=== PATIENT | male | born 1990 | race Caucasian/White ===

== ENCOUNTER 2020-09-30 03:59 | Observation (INO) ==
[2020-09-30] MEDS ORDERED: Aspirin 81 MG TAB.CHEW PO ONE (04:11)
[2020-09-30] MEDS ORDERED: Ondansetron 4 MG/2 ML VIAL IVP ONE (04:12)
[2020-09-30 04:22] LABS: Basophils % 0.1 %; Eosinophils # 0.3 K/mcL (0.0-0.6); Eosinophils % 1.3 %; Hematocrit 46.6 % (37.5-50.1); Hemoglobin 15.6 g/dL (12.9-16.9); Immature Granulocytes % 0.3 % (0-4); Lymphocytes % 9.9 %; Mean Corpuscular HGB Conc 33.5 g/dL (31.6-35.5); Mean Corpuscular Hemoglobin 28.3 pg (28.0-33.3); Mean Corpuscular Volume 84.6 fL (83.0-100.0); Monocytes # 1.3 K/mcL (0.0-1.3); Monocytes % 6.2 %; Neutrophils # 16.7 K/mcL (1.6-8.9); Platelet Count 251 K/mcL (140-400); Red Blood Count 5.51 M/mcL (4.19-5.50); Red Cell Distribution Width 12.7 % (11.5-14.5); Segmented Neutrophils % 82.2 %; White Blood Count 20.3 K/mcL (4.3-11.1)
[2020-09-30 04:44] LABS: Alanine Aminotransferase 28 Units/L (7-52); Albumin 4.7 g/dL (3.5-5.7); Albumin/Globulin Ratio 1.6 (1.1-2.2); Alkaline Phosphatase 55 Units/L (34-104); Aspartate Amino Transferase 19 Units/L (13-39); BUN/Creatinine Ratio 16 (6-26); Bilirubin,Direct 0.1 mg/dL (0.0-0.2); Bilirubin,Indirect 0.6 mg/dL (0.0-1.0); Bilirubin,Total 0.7 mg/dL (0.3-1.0); Blood Urea Nitrogen 15 mg/dL (6-20); Calcium 9.7 mg/dL (8.6-10.3); Carbon Dioxide 23 mEq/L (23-29); Chloride 104 mEq/L (98-107); Globulin 2.9 g/dL (2.4-3.5); Glucose 95 mg/dL (70-105); Lipase 21 Units/L (11-82); Osmolality,Calculated 287 (280-300); Potassium 3.6 mEq/L (3.5-5.1); Sodium 138 mEq/L (136-145); Total Protein 7.6 g/dL (6.4-8.9); eGFR For African Americans > 60 (> 60); eGFR For Non-African Americans > 60 (> 60)
[2020-09-30 04:45] LABS: Troponin I < 0.03 ng/mL (< 0.04)
[2020-09-30] MEDS ORDERED: *HR* LORazepam 2 MG/ML VIAL IVP ONE (04:47)
[2020-09-30] MEDS ORDERED: Isovue-370 500 ML BOTTLE IVP ONE (05:21)
[2020-09-30] MEDS ORDERED: 0.9 % Sodium Chloride 1,000 ML IVC ONE (05:45)
[2020-09-30 06:07] LABS: Bilirubin,Urine Negative (Negative); Blood,Urine Negative (Negative); Clarity,Urine Clear (Clear); Color,Urine Light-Yellow (Yellow); Glucose,Urine (UA) Normal (Normal); Ketones,Urine Negative (Negative); Leukocyte Esterase,Urine Negative (Negative); Nitrite,Urine Negative (Negative); PH,Urine 5.5 pH Units (5.0-8.0); Protein,Urine Negative (Neg-Trace); Specific Gravity,Urine 1.026 (1.010-1.025); Urobilinogen,Urine Normal (Normal)
[2020-09-30] MEDS ORDERED: 0.9 % Sodium Chloride 1,000 ML IVC SCH (07:00)
[2020-09-30] MEDS ORDERED: Ondansetron 4 MG/2 ML VIAL IVP PRN ×2 (07:19→12:42)
[2020-09-30] MEDS ORDERED: Clindamycin 900 MG/50 ML 900 MG/50 ML IV.SOLN IVPB ONE (07:23)
[2020-09-30] MEDS ORDERED: Bupivacaine 0.5%-Epi 1:200,000 50 ML VIAL ONE (07:26)
[2020-09-30] MEDS ORDERED: Dexamethasone 4 MG/ML VIAL ONE (07:35)
[2020-09-30] MEDS ORDERED: Lidocaine -MPF 2% 2 ML VIAL ONE ×2 (07:35→07:36)
[2020-09-30] MEDS ORDERED: Neostigmine Methylsulfate 3 MG/3 ML SYRINGE ONE (07:36)
[2020-09-30] MEDS ORDERED: *HR* Succinylcholine 200 MG/10 ML VIAL IVP ONE (07:36)
[2020-09-30] MEDS ORDERED: *HR* Propofol 200 MG/20 ML VIAL IVP ONE (07:36)
[2020-09-30] MEDS ORDERED: *HR* Rocuronium Bromide 50 MG/5 ML VIAL ONE (07:36)
[2020-09-30] MEDS ORDERED: *HR* FentaNYL (PF) 100 MCG/2 ML VIAL ONE (07:36)
[2020-09-30] MEDS ORDERED: *HR* Midazolam HCl 2 MG/2 ML VIAL ONE (07:36)
[2020-09-30] MEDS ORDERED: Lidocaine HCL 4 ML Topical Solution (Laryng-O-Jet Kit Sterile Pak) TP ONE (07:36)
[2020-09-30] MEDS ORDERED: *HR* FentaNYL (PF) 100 MCG/2 ML VIAL IVP PRN (07:59)
[2020-09-30] MEDS ORDERED: *HR* Labetalol 20 MG/4 ML SYRINGE IVP PRN (08:00)
[2020-09-30] MEDS ORDERED: Acetaminophen IV 1,000 MG/100 ML INFUS..BTL IVPB PRN (08:00)
[2020-09-30] MEDS ORDERED: Naloxone 0.4 MG/ML INJ IVP PRN (08:01)
[2020-09-30] MEDS ORDERED: Albuterol 2.5 MG/3 ML NEBULIZER IH PRN (08:01)
[2020-09-30] MEDS ORDERED: flumazeniL 0.5 MG/5 ML VIAL IVP PRN (08:01)
[2020-09-30] MEDS ORDERED: *HR* Labetalol 20 MG/4 ML SYRINGE IVP ONE (08:56)
[2020-09-30] MEDS ORDERED: Pantoprazole 40 MG VIAL IVP SCH (09:00)
[2020-09-30] MEDS: *HR* HYDROmorphone PF 0.5 MG/0.5 ML SYRINGE IVP PRN ×3 (10:40→10:55)
[2020-09-30] MEDS ORDERED: carvediloL 6.25 MG TABLET PO SCH (12:42)
[2020-09-30] MEDS ORDERED: *HR* OxyCODONE/APAP 5/325 TABLET PO PRN (12:42)
[2020-09-30] MEDS ORDERED: Loratadine 10 MG TABLET PO SCH (12:42)
[2020-09-30] MEDS: lisinopriL 10 MG TABLET PO SCH ×3 (13:07→13:09)
[2020-09-30] MEDS: Ketorolac 15 MG/ML VIAL IVP SCH ×2 (13:21→18:24)
[2020-09-30 15:33] VITALS: BP 101/62
[2020-10-01] MEDS ORDERED: Pantoprazole 40 MG VIAL IVP SCH (09:00)
== END 2020-09-30 19:15 | disposition home or self-care (01) ==
LOC: 3BNU 03:59 → EMEROOARM 03:59 → 3BNU 08:03
PROVIDERS: ADMIT Surgery; ATTEND Surgery

== ENCOUNTER 2020-10-01 01:42 | Observation (INO) ==
[2020-10-01] MEDS ORDERED: 0.9 % Sodium Chloride 1,000 ML IVC ONE ×3 (01:50→10:26)
[2020-10-01] MEDS ORDERED: Isovue-370 500 ML BOTTLE IVP ONE ×2 (02:14→02:22)
[2020-10-01] MEDS ORDERED: Ondansetron 4 MG/2 ML VIAL IVP ONE (02:17)
[2020-10-01] MEDS ORDERED: *HR* LORazepam 2 MG/ML VIAL IVP ONE (02:17)
[2020-10-01] MEDS ORDERED: *HR* FentaNYL (PF) 100 MCG/2 ML VIAL IVP ONE ×2 (02:17→05:23)
[2020-10-01 03:16] LABS: Hemoglobin 15.5 g/dL (12.9-16.9); INR 1.2; Immature Granulocytes % 0.4 % (0-4); Lymphocytes # 1.5 K/mcL (0.6-4.6); Lymphocytes % 7.3 %; Mean Corpuscular HGB Conc 33.7 g/dL (31.6-35.5); Mean Corpuscular Hemoglobin 28.9 pg (28.0-33.3); Mean Corpuscular Volume 85.8 fL (83.0-100.0); Mean Platelet Volume 11.1 fL (9.4-12.4); Monocytes # 1.2 K/mcL (0.0-1.3); Neutrophils # 17.8 K/mcL (1.6-8.9); Platelet Count 293 K/mcL (140-400); Prothrombin Time 13.8 Seconds (9.4-12.1); Red Blood Count 5.36 M/mcL (4.19-5.50); Red Cell Distribution Width 12.8 % (11.5-14.5); Segmented Neutrophils % 86.3 %; White Blood Count 20.7 K/mcL (4.3-11.1)
[2020-10-01 03:18] LABS: Activated Partial Thrombo Time 26.6 Seconds (26.0-36.0)
[2020-10-01 03:39] LABS: Alanine Aminotransferase 25 Units/L (7-52); Albumin 4.6 g/dL (3.5-5.7); Albumin/Globulin Ratio 1.5 (1.1-2.2); Alkaline Phosphatase 51 Units/L (34-104); Aspartate Amino Transferase 17 Units/L (13-39); BUN/Creatinine Ratio 11 (6-26); Bilirubin,Direct 0.2 mg/dL (0.0-0.2); Bilirubin,Indirect 1.1 mg/dL (0.0-1.0); Bilirubin,Total 1.3 mg/dL (0.3-1.0); Blood Urea Nitrogen 24 mg/dL (6-20); Calcium 9.4 mg/dL (8.6-10.3); Carbon Dioxide 20 mEq/L (23-29); Chloride 102 mEq/L (98-107); Glucose 127 mg/dL (70-105); Lipase 6 Units/L (11-82); Osmolality,Calculated 282 (280-300); Potassium 4.1 mEq/L (3.5-5.1); Sodium 133 mEq/L (136-145); Total Protein 7.6 g/dL (6.4-8.9); Troponin I < 0.03 ng/mL (< 0.04); eGFR For African Americans 42 (> 60); eGFR For Non-African Americans 35 (> 60)
[2020-10-01] MEDS ORDERED: Clindamycin 600 MG/50 ML 600 MG/50 ML IV.SOLN IVPB STA (03:53)
[2020-10-01] MEDS ORDERED: Ondansetron 4 MG/2 ML VIAL IVP PRN (06:25)
[2020-10-01] MEDS ORDERED: lisinopriL 20 MG TABLET PO SCH (09:00)
[2020-10-01] MEDS: 0.9 % Sodium Chloride 1,000 ML IVC SCH ×3 (09:31→21:17)
[2020-10-01] MEDS: carvediloL 6.25 MG TABLET PO SCH ×2 (09:32→17:06)
[2020-10-01] MEDS ORDERED: Gabapentin 100 MG CAPSULE PO ONE (11:12)
[2020-10-01] MEDS: Fluticasone Propionate Nasal 50 MCG/SPRAY BOTTLE NS SCH (12:04)
[2020-10-01 12:09] LABS: Hematocrit 45.3 % (37.5-50.1)
[2020-10-01] MEDS: Acetaminophen IV 1,000 MG/100 ML INFUS..BTL IVPB SCH ×2 (12:09→18:26)
[2020-10-01] MEDS: Clindamycin 600 MG/50 ML 600 MG/50 ML IV.SOLN IVPB SCH ×2 (15:09→17:09)
[2020-10-01 16:27] LABS: Estimated Average Glucose 123 mg/dl
[2020-10-01] MEDS: Gabapentin 100 MG CAPSULE PO SCH ×2 (17:06→21:18)
[2020-10-02] MEDS: Acetaminophen IV 1,000 MG/100 ML INFUS..BTL IVPB SCH ×2 (00:18→05:45)
[2020-10-02] MEDS: Clindamycin 600 MG/50 ML 600 MG/50 ML IV.SOLN IVPB SCH ×2 (00:59→08:00)
[2020-10-02 05:22] LABS: White Blood Count 11.2 K/mcL (4.3-11.1)
[2020-10-02 05:23] LABS: Basophils % 0.2 %; Eosinophils # 0.2 K/mcL (0.0-0.6); Eosinophils % 1.8 %; Hematocrit 44.2 % (37.5-50.1); Hemoglobin 14.6 g/dL (12.9-16.9); Immature Granulocytes % 0.3 % (0-4); Lymphocytes # 2.2 K/mcL (0.6-4.6); Lymphocytes % 19.5 %; Mean Corpuscular Volume 87.7 fL (83.0-100.0); Mean Platelet Volume 11.2 fL (9.4-12.4); Neutrophils # 7.8 K/mcL (1.6-8.9); Platelet Count 241 K/mcL (140-400); Red Blood Count 5.04 M/mcL (4.19-5.50); Red Cell Distribution Width 13.3 % (11.5-14.5); Segmented Neutrophils % 69.2 %
[2020-10-02 05:36] LABS: BUN/Creatinine Ratio 12 (6-26); Blood Urea Nitrogen 13 mg/dL (6-20); Calcium 9.1 mg/dL (8.6-10.3); Carbon Dioxide 25 mEq/L (23-29); Chloride 107 mEq/L (98-107); Glucose 82 mg/dL (70-105); Osmolality,Calculated 285 (280-300); Potassium 3.7 mEq/L (3.5-5.1); Sodium 138 mEq/L (136-145); eGFR For African Americans > 60 (> 60); eGFR For Non-African Americans > 60 (> 60)
[2020-10-02] MEDS: 0.9 % Sodium Chloride 1,000 ML IVC SCH (05:45)
[2020-10-02 07:05] VITALS: BP 129/87
[2020-10-02] MEDS: Fluticasone Propionate Nasal 50 MCG/SPRAY BOTTLE NS SCH (07:56)
[2020-10-02] MEDS: carvediloL 6.25 MG TABLET PO SCH (08:00)
[2020-10-02] MEDS: Gabapentin 100 MG CAPSULE PO SCH (08:00)
[2020-10-02] MEDS ORDERED: Ibuprofen 800 MG TABLET PO ONE (08:12)
== END 2020-10-02 11:15 | disposition home or self-care (01) ==
LOC: EMEROOARM 01:42 → 3ANU 01:42
PROVIDERS: ADMIT Surgery; ATTEND Surgery

== ENCOUNTER 2022-07-27 05:25 | Observation (INO) ==
[2022-07-27] MEDS ORDERED: Iopamidol - 370 500 ML MLS IVP ONE (05:55)
[2022-07-27] MEDS ORDERED: Nitroglycerin 0.4 MG TAB.SUBL SL PRN (05:55)
[2022-07-27 06:09] LABS: Basophils # 0.1 K/mcL (0.0-0.2); Basophils % 0.2 %; Eosinophils # 0.7 K/mcL (0.0-0.6); Eosinophils % 2.9 %; Hematocrit 39.6 % (37.5-50.1); Hemoglobin 13.4 g/dL (12.9-16.9); Immature Granulocytes % 0.9 % (0-4); Lymphocytes # 2.4 K/mcL (0.6-4.6); Lymphocytes % 9.8 %; Mean Corpuscular HGB Conc 33.8 g/dL (31.6-35.5); Mean Corpuscular Volume 82.8 fL (83.0-100.0); Mean Platelet Volume 9.5 fL (9.4-12.4); Monocytes # 1.6 K/mcL (0.0-1.3); Monocytes % 6.5 %; Neutrophils # 19.5 K/mcL (1.6-8.9); Platelet Count 354 K/mcL (140-400); Red Blood Count 4.78 M/mcL (4.19-5.50); Red Cell Distribution Width 13.1 % (11.5-14.5); Segmented Neutrophils % 79.7 %
[2022-07-27 06:10] LABS: White Blood Count 24.5 K/mcL (4.3-11.1)
[2022-07-27 06:16] LABS: INR 1.2; Prothrombin Time 13.8 Seconds (9.4-12.1)
[2022-07-27 06:18] LABS: Activated Partial Thrombo Time 25.3 Seconds (26.0-36.0)
[2022-07-27 06:33] LABS: Alanine Aminotransferase 22 Units/L (7-52); Albumin/Globulin Ratio 1.2 (1.1-2.2); Alkaline Phosphatase 63 Units/L (34-104); Aspartate Amino Transferase 13 Units/L (13-39); BUN/Creatinine Ratio 14 (6-26); Bilirubin,Direct 0.2 mg/dL (0.0-0.2); Bilirubin,Indirect 0.6 mg/dL (0.0-1.0); Bilirubin,Total 0.8 mg/dL (0.3-1.0); Blood Urea Nitrogen 12 mg/dL (6-20); Calcium 9.3 mg/dL (8.6-10.3); Carbon Dioxide 24 mEq/L (23-29); Chloride 103 mEq/L (98-107); Globulin 3.3 g/dL (2.4-3.5); Glucose 116 mg/dL (70-105); Lipase 115 Units/L (11-82); Osmolality,Calculated 285 (280-300); Potassium 3.3 mEq/L (3.5-5.1); Sodium 137 mEq/L (136-145); Total Protein 7.3 g/dL (6.4-8.9); Troponin I 0.06 ng/mL (< 0.04)
[2022-07-27 07:48] LABS: Influenza A PCR Negative (Negative); Influenza B PCR Negative (Negative); Resp. Syncytial Virus PCR Negative (Negative)
[2022-07-27 07:49] LABS: SARS-CoV-2 by PCR (In House) Negative (Negative)
[2022-07-27] MEDS ORDERED: Naloxone 0.4 MG/ML INJ IVP PRN (08:38)
[2022-07-27] MEDS ORDERED: *HR* Heparin 5,000 UNIT/ML VIAL IVP PRN (08:50)
[2022-07-27] MEDS ORDERED: *HR* Heparin 5,000 UNIT/ML VIAL IVP ONE (08:50)
[2022-07-27] MEDS ORDERED: Acetaminophen 325 MG TABLET PO ONE (09:11)
[2022-07-27] MEDS: Morphine Sulfate 2 MG/ML SYRINGE IVP PRN ×2 (11:05→17:05)
[2022-07-27] MEDS: Heparin 25,000UNIT/250ML 1/2NS 25,000 UNIT/250 ML IV.SOLN IVC SCH (11:13)
[2022-07-27 11:27] LABS: Troponin I 0.07 ng/mL (< 0.04)
[2022-07-27] MEDS: MethylPREDNISolone 40 MG/ML VIAL IVP SCH ×2 (17:04→23:15)
[2022-07-27] MEDS: Ondansetron 4 MG/2 ML VIAL IVP PRN (17:04)
[2022-07-27] MEDS: Piperacillin/Tazobactam 3.375 GM in 0.9 % Sodium Chloride Mini Bag 100 ML IVPB SCH ×2 (17:05→23:16)
[2022-07-27] MEDS ORDERED: 0.9 % Sodium Chloride 1,000 ML IVC SCH (18:00)
[2022-07-27] MEDS: Sucralfate 1 GM TABLET PO SCH (19:44)
[2022-07-27] MEDS: *HR* Heparin 5,000 UNIT/ML VIAL IVP PRN (19:55)
[2022-07-28] MEDS: Budesonide/Formoterol 160/4.5 1 PUFF INH IH SCH ×3 (02:14→20:27)
[2022-07-28 03:11] LABS: Basophils % 0.2 %; Eosinophils % 0.2 %; Hematocrit 45.5 % (37.5-50.1); Hemoglobin 14.9 g/dL (12.9-16.9); Immature Granulocytes % 0.7 % (0-4); Lymphocytes # 1.5 K/mcL (0.6-4.6); Lymphocytes % 6.5 %; Mean Corpuscular HGB Conc 32.7 g/dL (31.6-35.5); Mean Corpuscular Hemoglobin 28.1 pg (28.0-33.3); Mean Corpuscular Volume 85.8 fL (83.0-100.0); Monocytes # 0.8 K/mcL (0.0-1.3); Monocytes % 3.3 %; Neutrophils # 20.6 K/mcL (1.6-8.9); Platelet Count 378 K/mcL (140-400); Red Cell Distribution Width 13.3 % (11.5-14.5); Segmented Neutrophils % 89.1 %; White Blood Count 23.1 K/mcL (4.3-11.1)
[2022-07-28] MEDS: *HR* Heparin 5,000 UNIT/ML VIAL IVP PRN (03:17)
[2022-07-28 03:33] LABS: BUN/Creatinine Ratio 12 (6-26); Blood Urea Nitrogen 12 mg/dL (6-20); Carbon Dioxide 26 mEq/L (23-29); Chloride 100 mEq/L (98-107); Glucose 147 mg/dL (70-105); Osmolality,Calculated 280 (280-300); Potassium 4.1 mEq/L (3.5-5.1); Sodium 134 mEq/L (136-145)
[2022-07-28] MEDS: Heparin 25,000UNIT/250ML 1/2NS 25,000 UNIT/250 ML IV.SOLN IVC SCH (05:08)
[2022-07-28] MEDS: MethylPREDNISolone 40 MG/ML VIAL IVP SCH ×3 (08:21→23:38)
[2022-07-28] MEDS: Piperacillin/Tazobactam 3.375 GM in 0.9 % Sodium Chloride Mini Bag 100 ML IVPB SCH ×3 (08:22→23:38)
[2022-07-28] MEDS: Ondansetron 4 MG/2 ML VIAL IVP PRN ×2 (08:22→16:33)
[2022-07-28] MEDS: amLODIPine 5 MG TABLET PO SCH (08:24)
[2022-07-28] MEDS: Sucralfate 1 GM TABLET PO SCH ×3 (08:24→20:51)
[2022-07-28] MEDS: lisinopriL 20 MG TABLET PO SCH (08:24)
[2022-07-28] MEDS: Loratadine 10 MG TABLET PO SCH (08:24)
[2022-07-28] MEDS: 0.9 % Sodium Chloride 1,000 ML IVC SCH (13:36)
[2022-07-28] MEDS: Morphine Sulfate 2 MG/ML SYRINGE IVP PRN (16:25)
[2022-07-28] MEDS ORDERED: Acetaminophen 325 MG TABLET PO PRN (21:12)
[2022-07-29] MEDS: 0.9 % Sodium Chloride 1,000 ML IVC SCH (03:06)
[2022-07-29 04:40] VITALS: PULSE 93
[2022-07-29 06:17] LABS: Mean Corpuscular Volume 84.5 fL (83.0-100.0)
[2022-07-29 06:19] LABS: Hematocrit 41.3 % (37.5-50.1); Hemoglobin 13.7 g/dL (12.9-16.9); Mean Corpuscular HGB Conc 33.2 g/dL (31.6-35.5); Mean Platelet Volume 9.4 fL (9.4-12.4); Platelet Count 395 K/mcL (140-400); Red Blood Count 4.89 M/mcL (4.19-5.50); Red Cell Distribution Width 13.3 % (11.5-14.5); White Blood Count 27.3 K/mcL (4.3-11.1)
[2022-07-29 06:41] LABS: BUN/Creatinine Ratio 19 (6-26); Blood Urea Nitrogen 16 mg/dL (6-20); Calcium 9.4 mg/dL (8.6-10.3); Carbon Dioxide 26 mEq/L (23-29); Chloride 106 mEq/L (98-107); Glucose 144 mg/dL (70-105); Osmolality,Calculated 290 (280-300); Phosphorous 2.8 mg/dL (2.7-4.5); Potassium 4.2 mEq/L (3.5-5.1); Sodium 138 mEq/L (136-145)
[2022-07-29 06:42] VITALS: BP 123/83; TEMP 97.8
[2022-07-29 06:48] LABS: Eosinophils # 0.6 K/mcL (0.0-0.6); Lymphocytes # 0.6 K/mcL (0.6-4.6); Monocytes # 0.6 K/mcL (0.0-1.3); Neutrophils # 25.7 K/mcL (1.6-8.9)
[2022-07-29 06:49] LABS: Platelet Estimate Normal (Normal)
[2022-07-29] MEDS: Budesonide/Formoterol 160/4.5 1 PUFF INH IH SCH (07:33)
[2022-07-29 07:35] VITALS: O2SAT 95
[2022-07-29] MEDS: MethylPREDNISolone 40 MG/ML VIAL IVP SCH (08:47)
[2022-07-29] MEDS: lisinopriL 20 MG TABLET PO SCH (08:48)
[2022-07-29] MEDS: amLODIPine 5 MG TABLET PO SCH (08:48)
[2022-07-29] MEDS: Loratadine 10 MG TABLET PO SCH (08:48)
[2022-07-29] MEDS: Piperacillin/Tazobactam 3.375 GM in 0.9 % Sodium Chloride Mini Bag 100 ML IVPB SCH (08:48)
[2022-07-29] MEDS: Sucralfate 1 GM TABLET PO SCH (08:48)
== END 2022-07-29 15:18 | disposition home or self-care (01) ==
LOC: 3BNU 05:25 → EMEROOARM 05:25 → SUATTDRO 08:50 → 3BNU 10:10
PROVIDERS: ADMIT Internal Medicine; ATTEND Internal Medicine

== ENCOUNTER 2022-08-06 10:05 | Observation (INO) ==
[2022-08-06] MEDS ORDERED: Aspirin 81 MG TAB.CHEW PO ONE (10:59)
[2022-08-06] MEDS ORDERED: 0.9 % Sodium Chloride 1,000 ML IV ONE ×2 (11:26→13:18)
[2022-08-06 12:01] LABS: Basophils # 0.1 K/mcL (0.0-0.2); Basophils % 0.3 %; Eosinophils # 0.4 K/mcL (0.0-0.6); Eosinophils % 2.5 %; Hemoglobin 14.2 g/dL (12.9-16.9); Immature Granulocytes % 0.4 % (0-4); Lymphocytes # 1.3 K/mcL (0.6-4.6); Lymphocytes % 7.3 %; Mean Corpuscular Hemoglobin 28.2 pg (28.0-33.3); Mean Corpuscular Volume 85.3 fL (83.0-100.0); Mean Platelet Volume 9.4 fL (9.4-12.4); Monocytes # 1.6 K/mcL (0.0-1.3); Monocytes % 8.9 %; Platelet Count 440 K/mcL (140-400); Red Blood Count 5.04 M/mcL (4.19-5.50); Red Cell Distribution Width 13.5 % (11.5-14.5); Segmented Neutrophils % 80.6 %; White Blood Count 17.4 K/mcL (4.3-11.1)
[2022-08-06] MEDS ORDERED: Iopamidol - 370 500 ML MLS IVP ONE (12:13)
[2022-08-06 12:35] LABS: Troponin I 0.14 ng/mL (< 0.04)
[2022-08-06 12:48] LABS: Alanine Aminotransferase 60 Units/L (7-52); Albumin/Globulin Ratio 1.1 (1.1-2.2); Alkaline Phosphatase 85 Units/L (34-104); Aspartate Amino Transferase 21 Units/L (13-39); BUN/Creatinine Ratio 18 (6-26); Bilirubin,Direct 0.1 mg/dL (0.0-0.2); Bilirubin,Total 1.1 mg/dL (0.3-1.0); Blood Urea Nitrogen 16 mg/dL (6-20); Calcium 9.6 mg/dL (8.6-10.3); Carbon Dioxide 22 mEq/L (23-29); Chloride 101 mEq/L (98-107); Globulin 3.6 g/dL (2.4-3.5); Glucose 118 mg/dL (70-105); Lipase 154 Units/L (11-82); Osmolality,Calculated 278 (280-300); Sodium 133 mEq/L (136-145); Total Protein 7.6 g/dL (6.4-8.9)
[2022-08-06 13:15] LABS: Creatine Kinase 22 Units/L (30-223)
[2022-08-06] MEDS ORDERED: Nitroglycerin 0.4 MG TAB.SUBL SL PRN (15:11)
[2022-08-06] MEDS ORDERED: Nitroglycerin 1 INCH/GM PACKET TP ONE (15:39)
[2022-08-06 16:00] LABS: Bilirubin,Urine Negative (Negative); Blood,Urine Trace (Negative); Clarity,Urine Clear (Clear); Color,Urine Yellow (Yellow); Glucose,Urine (UA) Normal (Normal); Ketones,Urine Negative (Negative); Leukocyte Esterase,Urine Negative (Negative); Mucus,Urine Few per lpf (None-Few); Nitrite,Urine Negative (Negative); Protein,Urine Trace mg/dL (Neg-Trace); Specific Gravity,Urine > 1.030 (1.010-1.025); Urobilinogen,Urine Normal (Normal); WBC,Urine 0-3 per hpf (0-3)
[2022-08-06] MEDS ORDERED: Acetaminophen 325 MG TABLET PO PRN (16:29)
[2022-08-06] MEDS ORDERED: Naloxone 0.4 MG/ML INJ IVP PRN (16:29)
[2022-08-06] MEDS ORDERED: Melatonin 3 MG TABLET PO PRN (16:29)
[2022-08-06] MEDS ORDERED: Ondansetron 4 MG/2 ML VIAL IVP PRN (16:29)
[2022-08-06] MEDS ORDERED: *HR* Metoprolol 5 MG/5 ML VIAL IVP PRN ×2 (16:34→17:28)
[2022-08-06] MEDS ORDERED: hydrOXYzine pamoate 25 MG CAPSULE PO PRN (17:38)
[2022-08-06] MEDS: MethylPREDNISolone 40 MG/ML VIAL IVP SCH (17:58)
[2022-08-06] MEDS: Ringers Solution, Lactated 1,000 ML IVC SCH (17:59)
[2022-08-06] MEDS: Pantoprazole 40 MG VIAL IVP SCH (18:22)
[2022-08-06] MEDS: Budesonide/Formoterol 160/4.5 1 PUFF INH IH SCH (20:04)
[2022-08-07 01:47] LABS: Amphetamine Screen,Urine Negative ng/mL (Cutoff=1000); Barbiturate Screen,Urine Negative ng/mL (Cutoff=200); Benzodiazepines Screen,Urine Negative ng/mL (Cutoff=200); Cannabinoid Screen,Urine Negative ng/mL (Cutoff = 50); Cocaine Screen,Urine Negative ng/mL (Cutoff= 300); Opiate Screen,Urine Positive ng/mL (Cutoff=300); Phencyclidine Screen,Urine Negative ng/mL (Cutoff=25)
[2022-08-07 03:23] LABS: Basophils % 0.1 %; Eosinophils % 0.1 %; Hematocrit 39.1 % (37.5-50.1); Hemoglobin 12.8 g/dL (12.9-16.9); Immature Granulocytes % 0.4 % (0-4); Lymphocytes # 0.8 K/mcL (0.6-4.6); Lymphocytes % 5.6 %; Mean Corpuscular HGB Conc 32.7 g/dL (31.6-35.5); Mean Corpuscular Volume 85.6 fL (83.0-100.0); Mean Platelet Volume 9.8 fL (9.4-12.4); Monocytes # 0.6 K/mcL (0.0-1.3); Monocytes % 3.7 %; Neutrophils # 13.5 K/mcL (1.6-8.9); Platelet Count 422 K/mcL (140-400); Red Blood Count 4.57 M/mcL (4.19-5.50); Red Cell Distribution Width 13.3 % (11.5-14.5); Segmented Neutrophils % 90.1 %
[2022-08-07 03:44] LABS: BUN/Creatinine Ratio 16 (6-26); Blood Urea Nitrogen 13 mg/dL (6-20); Calcium 9.4 mg/dL (8.6-10.3); Carbon Dioxide 25 mEq/L (23-29); Chloride 100 mEq/L (98-107); Glucose 159 mg/dL (70-105); Lipase 42 Units/L (11-82); Magnesium 1.9 mg/dL (1.6-2.6); Osmolality,Calculated 281 (280-300); Phosphorous 3.8 mg/dL (2.7-4.5); Potassium 4.3 mEq/L (3.5-5.1); Sodium 134 mEq/L (136-145)
[2022-08-07] MEDS: Pantoprazole 40 MG VIAL IVP SCH ×2 (05:52→16:57)
[2022-08-07] MEDS: MethylPREDNISolone 40 MG/ML VIAL IVP SCH (05:52)
[2022-08-07] MEDS: Ringers Solution, Lactated 1,000 ML IVC SCH (06:00)
[2022-08-07] MEDS: Budesonide/Formoterol 160/4.5 1 PUFF INH IH SCH ×2 (07:29→22:00)
[2022-08-07] MEDS ORDERED: methylPREDNISolone 4 MG TABLET PO SCH (11:15)
[2022-08-07] MEDS: Hyoscyamine SL 0.125 MG TAB.SUBL SL SCH ×3 (12:16→21:22)
[2022-08-07] MEDS: methylPREDNISolone 4 MG TABLET PO SCH (14:02)
[2022-08-07 19:36] LABS: Adenovirus F 40/41 PCR Not detected (Not detect); Astrovirus PCR Not detected (Not detect); C.difficile Toxin A/B Gene PCR Not detected (Not detect); Campylobacter by PCR Not detected (Not detect); Cryptosporidium by PCR Not detected (Not detect); Cyclospora cayetanensis PCR Not detected (Not detect); Entamoeba histolytica PCR Not detected (Not detect); Enteroaggregative E.coli(EAEC) Not detected (Not detect); Enteropathogenic E.coli(EPEC) Not detected (Not detect); Enterotoxigenic E.coli (ETEC) Not detected (Not detect); Giardia lamblia PCR Not detected (Not detect); Norovirus GI/GII PCR Not detected (Not detect); Plesiomonas shigelloides PCR Not detected (Not detect); Rotavirus A PCR Not detected (Not detect); Salmonella PCR Not detected (Not detect); Sapovirus PCR Not detected (Not detect); Shig/EnteroinvasiveE coli EIEC Not detected (Not detect); Shigalike tox-prod E coli STEC Not detected (Not detect); Vibrio PCR Not detected (Not detect); Vibrio cholerae PCR Not detected (Not detect); Yersinia enterocolitica PCR Not detected (Not detect)
[2022-08-08 02:40] LABS: BUN/Creatinine Ratio 23 (6-26); Blood Urea Nitrogen 18 mg/dL (6-20); Calcium 9.5 mg/dL (8.6-10.3); Carbon Dioxide 26 mEq/L (23-29); Chloride 102 mEq/L (98-107); Glucose 149 mg/dL (70-105); Osmolality,Calculated 287 (280-300); Phosphorous 3.2 mg/dL (2.7-4.5); Potassium 4.2 mEq/L (3.5-5.1); Sodium 136 mEq/L (136-145)
[2022-08-08 02:50] LABS: Basophils % 0.1 %; Hematocrit 39.2 % (37.5-50.1); Hemoglobin 12.7 g/dL (12.9-16.9); Immature Granulocytes % 0.4 % (0-4); Lymphocytes # 0.9 K/mcL (0.6-4.6); Lymphocytes % 6.1 %; Mean Corpuscular HGB Conc 32.4 g/dL (31.6-35.5); Mean Corpuscular Hemoglobin 27.6 pg (28.0-33.3); Mean Corpuscular Volume 85.2 fL (83.0-100.0); Mean Platelet Volume 10.3 fL (9.4-12.4); Monocytes # 0.6 K/mcL (0.0-1.3); Monocytes % 3.9 %; Neutrophils # 13.1 K/mcL (1.6-8.9); Platelet Count 478 K/mcL (140-400); Red Cell Distribution Width 13.1 % (11.5-14.5); Segmented Neutrophils % 89.5 %; White Blood Count 14.7 K/mcL (4.3-11.1)
[2022-08-08] MEDS: Pantoprazole 40 MG VIAL IVP SCH (05:58)
[2022-08-08 06:50] VITALS: BP 110/71; PULSE 81; TEMP 97.7
[2022-08-08] MEDS: Budesonide/Formoterol 160/4.5 1 PUFF INH IH SCH (07:28)
[2022-08-08 07:30] VITALS: O2SAT 96
[2022-08-08] MEDS ORDERED: carvediloL 6.25 MG TABLET PO SCH (08:00)
[2022-08-08] MEDS: methylPREDNISolone 4 MG TABLET PO SCH (08:17)
[2022-08-08] MEDS: Hyoscyamine SL 0.125 MG TAB.SUBL SL SCH (08:17)
[2022-08-08] MEDS ORDERED: amLODIPine 5 MG TABLET PO SCH (09:00)
[2022-08-10 11:34] LABS: Quantiferon Mitogen minus NIL 6.57 IU/mL; Quantiferon TB2 minus NIL 0.01 IU/mL (< 0.35)
== END 2022-08-08 11:37 | disposition home or self-care (01) ==
LOC: 3BNU 10:05 → EMEROOARM 10:05 → 3BNU 17:39
PROVIDERS: ADMIT Internal Medicine; ATTEND Internal Medicine